=== PATIENT | male | born 1965 | race Caucasian/White ===

== ENCOUNTER → 2018-05-29 13:00 | Outpatient (CLI) | payer OTHER, SELFPAY | PROVIDERS: Family Provider Internal Medicine; PCP Internal Medicine | DX: Z23 Encounter for immunization (principal) | CPT/HCPCS: 90471; 90686 ==

== ENCOUNTER → 2018-09-24 12:59 | Outpatient (CLI) | payer OTHER, SELFPAY ==
[2018-09-24 13:35] LABS: Add Manual Diff / Slide Review NO; Basophils Percent Auto 0.6 % (0-2); Eosinophils Percent Auto 0.4 % (2-4); Hematocrit 40.7 % (41-53); Hemoglobin 13.6 g/dL (13.5-17.5); Lymphocytes Percent Auto 23.9 % (25-40); Mean Corpuscular HGB Conc 33.4 % (30-36); Mean Corpuscular Hemoglobin 32.2 PG (26-34); Mean Corpuscular Volume 96.5 fL (80-100); Monocytes Percent Auto 8.3 % (3-14); Neutrophils Absolute Auto 5800 /uL (1500-7000); Neutrophils Percent Auto 66.8 % (50-75); Platelet Count 454 X10^3/uL (150-400); Red Blood Cell Count 4.22 X10^6/uL (4.5-5.9); Red Cell Distribution Width 13.3 % (11.6-14.8); White Blood Cell Count 8.7 X10^3/uL (4.5-11.0)
== END ==
PROVIDERS: Family Provider Internal Medicine; PCP Internal Medicine; Visit Provider Student in an Organized Health Care Education/Training Program
DX: D64.9 Anemia, unspecified (principal)
CPT/HCPCS: 36415; 85025

== ENCOUNTER → 2019-03-28 16:11 | Outpatient (CLI) | payer OTHER, SELFPAY ==
--- NOTE | 2019-03-28 | DI.MRI.S_ITS ---
PROCEDURE: MR FEMUR RT WO CON INDICATIONS: RIGHT HAMSTRING INJURY TECHNIQUE: Noncontrast coronal and sagittal T1 spin echo and STIR; axial T1 spin echo and T2 fast spin echo with fat saturation through the right thigh. COMPARISON: None. FINDINGS: Image quality: Excellent. Bones: The visualized bone marrow demonstrates normal signal on all sequences. The overlying cortex appears intact. No fractures lines or intra-osseous lesions. Soft tissues: There is a full-thickness avulsion involving the conjoined tendon of semitendinosus and biceps femoris as well as origin of the semimembranosus at their insertion on ischial tuberosity with approximately 3-4 cm of distal retraction of torn tendon fibers to the respective musculotendinous junctions. Edema within upper to mid hamstring muscles are seen suggestive of muscle strain/partial thickness tear. No other muscle or tendon signal abnormality is seen. No muscle atrophy. Moderate amount of fluid is seen surrounding proximal hamstring tendons and muscles. IMPRESSION: 1. Full thickness rupture of proximal hamstring tendon origins at ischial tuberosity with 3-4 cm distal retraction of torn tendon fibers to the level of musculotendinous junction. There is associated strain/intrasubstance partial-thickness tear involving upper to midportion of the hamstring muscles. 2. No marrow edema. No fracture or dislocation. No other muscle or tendon signal abnormality. Dictated by: Bhaskar Damon M.D. on 03/29/2019 at 14:07 Approved by: Bhaskar Damon M.D. on 03/29/2019 at 14:17
== END ==
PROVIDERS: Family Provider Internal Medicine; PCP Internal Medicine; Referring Provider Orthopaedic Surgery; Visit Provider Orthopaedic Surgery
DX: S76.311A Strain of muscle, fascia and tendon of the posterior muscle group at thigh level, right thigh, initial encounter (principal); X58.XXXA Exposure to other specified factors, initial encounter
CPT/HCPCS: 73718

== ENCOUNTER → 2019-10-24 14:24 | Outpatient (CLI) | payer OTHER, SELFPAY ==
--- NOTE | 2019-10-24 | DI.MRI.S_ITS ---
PROCEDURE: MR FEMUR RT WO CON INDICATIONS: RIGHT HAMSTRING TEAR TECHNIQUE: Noncontrast coronal and sagittal T1 spin echo and STIR; axial T1 spin echo and T2 fast spin echo with fat saturation through the right femur were. COMPARISON: [facility], MR, MR FEMUR RT WO CON, 05/02/2019, 12:28. FINDINGS: Image quality: Excellent. Bones: The visualized bone marrow demonstrates normal signal on all sequences. The overlying cortex appears intact. No fractures lines or intra-osseous lesions. Soft tissues: There is thickening of the right hamstring origin, in keeping with postsurgical changes and prior tear. Overall, this demonstrates less T2 hyperintensity/edema since 05/02/19, with mild persistent intrasubstance signal change, which could be combination of postsurgical appearance, chronic tendinosis and/or low-grade sprain. Incidentally noted small lipoma within the right semi-tendinosis muscle measuring approximately 2 cm on image 14/4. There is mild geographic diffuse muscle T2 hyperintensity involving the long head of the right biceps femoris raising the possibility of low-grade strain however quite subtle MR appearance therefore please correlate clinically. IMPRESSION: Postsurgical changes of the right hamstring origin. Overall, the amount of inflammation and edema is improved since 05/02/19. Mild intrasubstance signal change could reflect low-grade recurrent strain or chronic tendinosis. Minimal geographic T2 hyperintensity which appears to involve the long head of the right biceps femoris raising the possibility of low-grade strain, versus minimal/early denervation however MR appearance is quite subtle, and could reflect heterogeneous magnetic field artifact. No evidence of fatty infiltration or atrophy. Dictated by: Blaine Hancock M.D. on 10/24/2019 at 15:39 Approved by: Blaine Hancock M.D. on 10/24/2019 at 16:54
== END ==
PROVIDERS: Family Provider Internal Medicine; PCP Internal Medicine; Referring Provider Orthopaedic Surgery; Visit Provider Orthopaedic Surgery
DX: S76.319A Strain of muscle, fascia and tendon of the posterior muscle group at thigh level, unspecified thigh, initial encounter (principal); D17.9 Benign lipomatous neoplasm, unspecified; X58.XXXA Exposure to other specified factors, initial encounter
CPT/HCPCS: 73718

== ENCOUNTER → 2020-09-24 07:53 | Outpatient (CLI) | payer OTHER, SELFPAY ==
[2020-09-24] MEDS: COVID-19 VACC(MODERNA-1)/PF 100 MCG/0.5 ML VIAL IM (07:58)
== END ==
PROVIDERS: Family Provider Internal Medicine; PCP Internal Medicine; Visit Provider Internal Medicine
DX: Z23 Encounter for immunization (principal)
CPT/HCPCS: 0011A; 91301

== ENCOUNTER → 2020-10-21 07:45 | Outpatient (CLI) | payer OTHER, SELFPAY ==
[2020-10-21] MEDS: COVID-19 VACC #2, MRNA(MOD) 100 MCG/0.5 ML VIAL IM (07:54)
== END ==
PROVIDERS: PCP Internal Medicine; Visit Provider Internal Medicine
DX: Z23 Encounter for immunization (principal)
CPT/HCPCS: 0012A; 91301

== ENCOUNTER → 2020-11-26 12:12 | Outpatient (CLI) | payer OTHER, SELFPAY ==
[2020-11-26 12:38] LABS: Add Manual Diff / Slide Review NO; Basophils Absolute Auto 100 /uL (0-100); Basophils Percent Auto 0.8 % (0-2); Eosinophils Absolute Auto 100 /uL (0-450); Eosinophils Percent Auto 0.6 % (2-4); Hematocrit 38.4 % (41-53); Hemoglobin 13.1 g/dL (13.5-17.5); Lymphocytes Absolute Auto 2600 /uL (1100-4500); Lymphocytes Percent Auto 32.6 % (25-40); Mean Corpuscular Hemoglobin 32.3 PG (26-34); Mean Corpuscular Volume 94.9 fL (80-100); Monocytes Absolute Auto 700 /uL (0-900); Monocytes Percent Auto 9.3 % (3-14); Neutrophils Absolute Auto 4500 /uL (1500-7000); Neutrophils Percent Auto 56.7 % (50-75); Platelet Count 505 X10^3/uL (150-400); Red Blood Cell Count 4.04 X10^6/uL (4.5-5.9); Red Cell Distribution Width 12.6 % (11.6-14.8); White Blood Cell Count 7.9 X10^3/uL (4.5-11.0)
[2020-11-26 13:16] LABS: Blood Urea Nitrogen 18 mg/dL (9-20); Calcium 9.9 mg/dL (8.4-10.2); Carbon Dioxide 30 mmol/L (22-32); Chloride 103 mmol/L (98-107); Cholesterol 182 mg/dL (140-199); Estimated Glomerular Filt Rate > 60.0 mL/min (>60); Glucose 105 mg/dL (70-100); HDL Cholesterol 39 mg/dL (40-60); HEMOLYSIS < 15 (0-50); LDL Cholesterol Calculated 135 mg/dL (<100); Potassium 4.6 mmol/L (3.4-5.1); Sodium 137 mmol/L (137-145); Triglycerides 38 mg/dL (35-150)
[2020-11-26 13:40] LABS: Testosterone 912 ng/dL (71.8-623)
== END ==
PROVIDERS: PCP Internal Medicine; Referring Provider Internal Medicine; Visit Provider Internal Medicine
DX: R53.83 Other fatigue (principal); E78.2 Mixed hyperlipidemia; E29.1 Testicular hypofunction
CPT/HCPCS: 36415; 80048; 80061; 84153; 84403; 85025

== ENCOUNTER → 2021-05-27 07:47 | Outpatient (CLI) | payer OTHER, SELFPAY ==
--- NOTE | 2021-05-27 | DI.NM.S_ITS ---
PROCEDURE: NM BONE SCAN WHOLE BODY RADIOPHARMACEUTICAL: 20.8 mCi Tc-99m MDP IV. INDICATIONS: BONE LESION OF RIGHT SHOULDER TECHNIQUE: Delayed whole-body scintigrams were obtained approximately 3-4 hours after intravenous injection of radiotracer. Anterior and posterior views were acquired from vertex to feet. COMPARISON: [facility] [place], MR, MR CERVICAL SPINE WITHOUT CONTRAST, 11/24/2017, 16:14. [facility], [facility], MR LUMBAR SPINE WO CON, 04/26/2016, 18:53. [facility], MR, MR SHOULDER RT WO CON, 05/18/2021, 17:36. [facility], RG, XR SHOULDER 3V LEFT, 05/06/2021, 7:50. FINDINGS: There is mildly increased uptake in the right humeral head, correlating with findings of erosive changes on radiograph, on MRI and CT. No lesions are identified in skull, sternum, clavicles, scapulae, ribs, bony pelvis, and visualized shafts of the long bones. There is foci of low level increased uptake in cervical, thoracic and lower lumbar spine, most likely degenerative in nature . There are foci of mildly increased periarticular activity involving shoulders, hips and knees, compatible with degenerative/arthritic changes. IMPRESSION: 1. Mildly increased uptake in the right humeral head, correlating with erosive changes seen on comparison radiograph, MRI and CT. Given relatively low level increased uptake, the finding suggests benign etiology. 2. Degenerative/arthritic changes elsewhere as described. Dictated by: Jani Link M.D. on 05/27/2021 at 17:24 Approved by: Jani Link M.D. on 05/28/2021 at 18:18
== END ==
PROVIDERS: PCP Internal Medicine; Referring Provider Student in an Organized Health Care Education/Training Program; Visit Provider Student in an Organized Health Care Education/Training Program
DX: M89.9 Disorder of bone, unspecified (principal)
CPT/HCPCS: 78306; A9503

== ENCOUNTER → 2021-06-24 14:53 | Outpatient (CLI) | payer OTHER, SELFPAY | PROVIDERS: PCP Internal Medicine; Referring Provider Internal Medicine; Visit Provider Internal Medicine | DX: Z23 Encounter for immunization (principal) | CPT/HCPCS: 90471; 90686 ==

== ENCOUNTER → 2021-07-23 09:06 | Outpatient (CLI) | payer OTHER, SELFPAY ==
[2021-07-23] MEDS: COVID-19 VACC #3, MRNA(MOD) 50 MCG/0.25 ML VIAL IM (09:15)
== END ==
PROVIDERS: PCP Internal Medicine; Visit Provider Internal Medicine
DX: Z23 Encounter for immunization (principal)
CPT/HCPCS: 0013A; 91301

== ENCOUNTER → 2021-08-04 09:36 | Outpatient (CLI) | payer OTHER, SELFPAY ==
[2021-08-04 16:42] LABS: COVID19 -Nasal RAPID Negative (Negative)
== END ==
PROVIDERS: PCP Internal Medicine; Referring Provider Physical Medicine & Rehabilitation; Visit Provider Physical Medicine & Rehabilitation
DX: Z20.822 Contact with and (suspected) exposure to COVID-19 (principal)
CPT/HCPCS: 87635; C9803

== ENCOUNTER → 2021-09-02 13:16 | Outpatient (CLI) | payer OTHER, SELFPAY ==
[2021-09-02 13:43] LABS: COVID19 -Nasal RAPID Negative (Negative)
== END ==
PROVIDERS: PCP Internal Medicine; Visit Provider Physical Medicine & Rehabilitation
DX: Z20.822 Contact with and (suspected) exposure to COVID-19 (principal)
CPT/HCPCS: 87635; C9803

== ENCOUNTER → 2022-04-07 09:30 | Outpatient (CLI) | payer OTHER, SELFPAY ==
[2022-04-07 10:31] LABS: COVID19 -Nasal RAPID Negative (Negative)
== END ==
PROVIDERS: PCP Internal Medicine; Visit Provider Physical Medicine & Rehabilitation
DX: Z20.822 Contact with and (suspected) exposure to COVID-19 (principal)
CPT/HCPCS: 87635

== ENCOUNTER → 2022-06-21 15:00 | Outpatient (CLI) | payer OTHER, SELFPAY | PROVIDERS: PCP Internal Medicine; Referring Provider Internal Medicine; Visit Provider Internal Medicine | DX: Z23 Encounter for immunization (principal) | CPT/HCPCS: 90471; 90686 ==

== ENCOUNTER → 2022-07-27 12:27 | Outpatient (CLI) | payer OTHER, SELFPAY ==
[2022-07-27 13:56] LABS: Add Manual Diff / Slide Review NO; Basophils Absolute Auto 0 /uL (0-100); Basophils Percent Auto 0.5 % (0-2); Eosinophils Absolute Auto 100 /uL (0-450); Hematocrit 34.9 % (41-53); Hemoglobin 12.1 g/dL (13.5-17.5); Lymphocytes Absolute Auto 3100 /uL (1100-4500); Lymphocytes Percent Auto 36.2 % (25-40); Mean Corpuscular HGB Conc 34.6 % (30-36); Mean Corpuscular Hemoglobin 31.9 PG (26-34); Mean Corpuscular Volume 92.3 fL (80-100); Monocytes Absolute Auto 800 /uL (0-900); Monocytes Percent Auto 9.2 % (3-14); Neutrophils Absolute Auto 4500 /uL (1500-7000); Neutrophils Percent Auto 53.1 % (50-75); Platelet Count 534 X10^3/uL (150-400); Red Blood Cell Count 3.78 X10^6/uL (4.5-5.9); Red Cell Distribution Width 13.9 % (11.6-14.8); White Blood Cell Count 8.5 X10^3/uL (4.5-11.0)
[2022-07-27 14:33] LABS: Erythrocyte Sedimentation Rate 97 MM/HR (0-15)
[2022-07-27 14:35] LABS: Alanine Aminotransferase 26 IU/L (<50); Albumin 4.5 g/dL (3.5-5.0); Alkaline Phosphatase 78 U/L (38-126); Aspartate Aminotransferase 35 IU/L (17-59); BUN Creatinine Ratio 15.4 (6-22); Bilirubin Total 0.5 mg/dL (0.2-1.3); Blood Urea Nitrogen 16 mg/dL (9-20); C-Reactive Protein Quant 1.6 mg/dL (<1.0); Calcium 10.1 mg/dL (8.4-10.2); Carbon Dioxide 28 mmol/L (22-32); Chloride 100 mmol/L (98-107); Estimated Glomerular Filt Rate > 60 mL/min (>60); Globulin 4.3 g/dL (1.7-4.1); Glucose 94 mg/dL (70-100); HEMOLYSIS 19 (0-50); Potassium 4.7 mmol/L (3.4-5.1); Sodium 137 mmol/L (137-145); Total Protein 8.8 g/dL (6.3-8.2)
[2022-07-27 14:37] LABS: HEMOLYSIS 21 (0-50); Iron 74 ug/dL (49-181)
[2022-07-27 14:41] LABS: Rheumatoid Factor < 8.6 IU/mL (<12.0)
[2022-07-27 14:48] LABS: Percent Iron Saturation 28 % (20-50); Total Iron Binding Capacity 264 ug/dL (261-462); Transferrin 214 mg/dL (206-381)
[2022-07-27 15:07] LABS: Ferritin 32 ng/mL (18-464)
[2022-08-01 21:23] LABS: CCP Antibodies IgG/IgA 8 units (0-19)
[2022-08-02 18:16] LABS: ANA Screen, IFA Negative (.)
== END ==
PROVIDERS: PCP Internal Medicine; Referring Provider Internal Medicine; Visit Provider Internal Medicine
DX: D64.9 Anemia, unspecified (principal); M25.50 Pain in unspecified joint; R73.01 Impaired fasting glucose
CPT/HCPCS: 36415; 80053; 82728; 83036; 83540; 83550; 85025; 85651; 86038; 86140; 86200; 86430

== ENCOUNTER → 2022-07-29 08:31 | Outpatient (CLI) | payer OTHER, SELFPAY ==
--- NOTE | 2022-07-29 | DI.RAD.S_ITS ---
PROCEDURE: FL SHOULDER INJECTION MR/CT RT INDICATIONS: impingement syndrome of right shoulder, rule out new tear COMPARISON: None. TECHNIQUE: The indications, alternatives, benefits, risks, and complications of the procedure were explained to the patient. Written informed consent was obtained and placed in the chart. The shoulder was examined fluoroscopically and a site for needle placement chosen for entry into the glenohumeral joint from an anterior approach. The skin was prepped and draped in a sterile fashion, and 1% lidocaine infiltrated from skin down to joint capsule. A spinal needle was inserted into the glenohumeral joint, and a small amount of iodinated contrast media injected to confirm intra-articular placement of the needle tip. This was followed by approximately 12 mL dilute solution of a gadolinium containing MR contrast agent. The needle was removed and a dressing was applied. The patient was given postprocedural instructions and sent to the MR suite for MR imaging. FINDINGS: A single fluoroscopic spot image demonstrates intra-articular location of injected iodinated contrast. IMPRESSION: Successful fluoroscopically guided administration of dilute Gadolinium solution into the shoulder joint for MR arthrogram. Dictated by: Bhaskar Damon M.D. on 07/29/2022 at 9:54 Approved by: Bhaskar Damon M.D. on 07/29/2022 at 9:55
--- NOTE | 2022-07-29 08:33 | DI.MRI.S_ITS ---
PROCEDURE: MR SHOULDER RT W CON INDICATIONS: IMPINGEMENT SYNDROME RIGHT SHOULDER TECHNIQUE: After the administration of 12 mL of dilute intra-articular Gadolinium contrast, oblique coronal T1 and T2 spin echo with fat saturation, oblique sagittal T1 spin echo with and without fat saturation, oblique sagittal T2 fast spin echo with fat saturation, axial T1 spin echo with fat saturation through the shoulder. COMPARISON: None. FINDINGS: Image quality: Excellent. Rotator cuff: There is a focal dissecting type tear involving the supraspinatus tendon with contrast extending into the subacromial subdeltoid bursa. No significant tendon retraction is identified. Remaining rotator cuff tendons are intact.. Bones and bursae: No bone marrow contusions or fractures. There is moderate AC and moderate glenohumeral joint degenerative change. Capsule and soft tissues: There is a tear involving the posterior glenoid labrum. The tear also extends into the superior glenoid labrum. The long head of the biceps tendon demonstrates normal location and morphology. The rotator interval appears normal, without fibrosis. The coracohumeral ligament is of normal thickness. No intra-articular bodies. IMPRESSION: 1. Tear involving the posterior glenoid labrum extending into the superior glenoid labrum. 2. Focal dissecting type tear involving the supraspinatus tendon with contrast extending into the subacromial subdeltoid bursa. 3. Moderate AC joint degenerative change. 4. Moderate glenohumeral joint degenerative change. 5. Prior postsurgical changes of rotator cuff repair. Dictated by: Darien Parham M.D. on 07/29/2022 at 10:39 Approved by: Darien Parham M.D. on 07/29/2022 at 10:44
== END ==
PROVIDERS: PCP Internal Medicine; Referring Provider Orthopaedic Surgery; Visit Provider Orthopaedic Surgery
DX: M75.41 Impingement syndrome of right shoulder (principal); M75.111 Incomplete rotator cuff tear or rupture of right shoulder, not specified as traumatic; S43.431A Superior glenoid labrum lesion of right shoulder, initial encounter
CPT/HCPCS: 23350; 73222; 77002

== ENCOUNTER → 2022-08-02 14:13 | Outpatient (CLI) | payer OTHER, SELFPAY ==
[2022-08-02 14:30] LABS: Add Manual Diff / Slide Review NO; Basophils Absolute Auto 100 /uL (0-100); Basophils Percent Auto 0.8 % (0-2); Eosinophils Absolute Auto 0 /uL (0-450); Eosinophils Percent Auto 0.6 % (2-4); Hematocrit 35.7 % (41-53); Hemoglobin 12.1 g/dL (13.5-17.5); Lymphocytes Absolute Auto 2200 /uL (1100-4500); Mean Corpuscular HGB Conc 33.9 % (30-36); Mean Corpuscular Hemoglobin 31.3 PG (26-34); Mean Corpuscular Volume 92.5 fL (80-100); Monocytes Absolute Auto 500 /uL (0-900); Monocytes Percent Auto 7.3 % (3-14); Neutrophils Absolute Auto 4200 /uL (1500-7000); Neutrophils Percent Auto 60.3 % (50-75); Platelet Count 550 X10^3/uL (150-400); Red Blood Cell Count 3.85 X10^6/uL (4.5-5.9); Red Cell Distribution Width 13.8 % (11.6-14.8)
[2022-08-02 14:36] LABS: Reticulocyte Count, Percent 1.1 % (0.9-2.6)
[2022-08-02 14:46] LABS: C-Reactive Protein Quant 0.9 mg/dL (<1.0)
[2022-08-02 14:50] LABS: Erythrocyte Sedimentation Rate 83 MM/HR (0-15)
[2022-08-02 15:32] LABS: Vitamin B12 874 pg/mL (239-931)
[2022-08-02 15:41] LABS: Protein (Total) Urine Random 12 mg/dL (0-12)
[2022-08-04 17:52] LABS: Albumin 3.6 g/dL (2.9-4.4); Alpha-1-Globulin 0.3 g/dL (0.0-0.4); Alpha-2-Globulin 0.6 g/dL (0.4-1.0); Gamma Globulin 2.2 g/dL (0.4-1.8); Globulin Total 4.2 g/dL (2.2-3.9); Protein, Total 7.8 g/dL (6.0-8.5)
[2022-08-05 09:50] LABS: Methylmalonic Acid,Serum 85 nmol/L (0-378)
== END ==
PROVIDERS: PCP Internal Medicine; Referring Provider Internal Medicine; Visit Provider Internal Medicine
DX: D64.9 Anemia, unspecified (principal); E53.8 Deficiency of other specified B group vitamins; R77.9 Abnormality of plasma protein, unspecified
CPT/HCPCS: 36415; 82607; 83921; 84155; 84156; 84165; 85025; 85045; 85651; 86140

== ENCOUNTER → 2023-01-31 12:18 | Outpatient (CLI) | payer OTHER, SELFPAY ==
--- NOTE | 2023-01-31 12:18 | DI.RAD.S_ITS ---
PROCEDURE: XR CHEST 2V INDICATIONS: cough, sweats, hx pulmonary nodules TECHNIQUE: 2 views of the chest were acquired. COMPARISON: Outside Facility, RG, CT THORAX/ ABD/ PELVIS WITH CONTRAST, 11/18/2022, 12:10. FINDINGS: Surgical changes and devices: None. Lungs and pleura: Lungs are clear. No pleural effusions or pneumothorax. Mediastinum: Mediastinal contours are normal. Heart size is normal. Bones and chest wall: No suspicious bony abnormalities. Soft tissues appear unremarkable. Thoracic spine degenerative disc changes. Bilateral glenohumeral joint osteoarthritis, right greater than left. Widening of the bilateral acromioclavicular joints possibly postsurgical. IMPRESSION: No acute cardiopulmonary disease process. Dictated by: Hyacinth Ly MD, PhD on 01/31/2023 at 15:21 Approved by: Hyacinth Ly MD, PhD on 01/31/2023 at 15:26
== END ==
PROVIDERS: PCP Internal Medicine; Referring Provider Internal Medicine; Visit Provider Internal Medicine
DX: R05.9 Cough, unspecified (principal); R91.8 Other nonspecific abnormal finding of lung field
CPT/HCPCS: 71046

== ENCOUNTER → 2023-03-06 17:02 | Outpatient (CLI) | payer OTHER, SELFPAY ==
[2023-03-06 17:38] LABS: Add Manual Diff / Slide Review NO; Basophils Absolute Auto 0 /uL (0-100); Basophils Percent Auto 0.6 % (0-2); Eosinophils Absolute Auto 0 /uL (0-450); Eosinophils Percent Auto 0.4 % (2-4); Hemoglobin 11.8 g/dL (13.5-17.5); Lymphocytes Absolute Auto 2000 /uL (1100-4500); Lymphocytes Percent Auto 25.4 % (25-40); Mean Corpuscular HGB Conc 34.6 % (30-36); Mean Corpuscular Hemoglobin 31.6 PG (26-34); Mean Corpuscular Volume 91.3 fL (80-100); Monocytes Absolute Auto 1000 /uL (0-900); Monocytes Percent Auto 12.8 % (3-14); Neutrophils Absolute Auto 4700 /uL (1500-7000); Neutrophils Percent Auto 60.8 % (50-75); Platelet Count 590 X10^3/uL (150-400); Red Blood Cell Count 3.73 X10^6/uL (4.5-5.9); White Blood Cell Count 7.7 X10^3/uL (4.5-11.0)
[2023-03-06 18:03] LABS: HEMOLYSIS < 15 (0-50); Iron 57 ug/dL (49-181)
[2023-03-06 18:12] LABS: Alanine Aminotransferase 25 IU/L (<50); Albumin 4.4 g/dL (3.5-5.0); Albumin Globulin Ratio 0.9 (1.0-2.8); Alkaline Phosphatase 81 U/L (38-126); Aspartate Aminotransferase 31 IU/L (17-59); Bilirubin Total 0.5 mg/dL (0.2-1.3); Blood Urea Nitrogen 11 mg/dL (9-20); Carbon Dioxide 32 mmol/L (22-32); Chloride 98 mmol/L (98-107); Estimated Glomerular Filt Rate > 60 mL/min (>60); Globulin 4.9 g/dL (1.7-4.1); Glucose 94 mg/dL (70-100); HEMOLYSIS < 15 (0-50); Sodium 137 mmol/L (137-145); Total Protein 9.3 g/dL (6.3-8.2)
[2023-03-06 18:15] LABS: Percent Iron Saturation 21 % (20-50); Total Iron Binding Capacity 272 ug/dL (261-462); Transferrin 190 mg/dL (206-381)
[2023-03-06 18:43] LABS: Ferritin 42 ng/mL (18-464)
[2023-03-07 04:46] LABS: IGA 55 mg/dL (90-386); IGG 1007 mg/dL (603-1613); IGM 2445 mg/dL (20-172)
[2023-03-07 20:36] LABS: Free Kappa Lt Chains, Serum 10.1 mg/L (3.3-19.4); Free Lambda Lt Chains,Serum 92.3 mg/L (5.7-26.3)
[2023-03-08 15:16] LABS: Albumin 3.7 g/dL (2.9-4.4); Alpha-1-Globulin 0.2 g/dL (0.0-0.4); Alpha-2-Globulin 0.7 g/dL (0.4-1.0); Gamma Globulin 2.6 g/dL (0.4-1.8); Globulin Total 4.5 g/dL (2.2-3.9); Protein, Total 8.2 g/dL (6.0-8.5)
== END ==
PROVIDERS: PCP Internal Medicine; Referring Provider Physician Assistant; Visit Provider Physician Assistant
DX: D64.9 Anemia, unspecified (principal)
CPT/HCPCS: 36415; 80053; 82728; 82784; 83540; 83550; 83883; 84155; 84165; 85025

== ENCOUNTER → 2023-04-20 17:11 | Outpatient (CLI) | payer OTHER, SELFPAY ==
[2023-04-20 17:41] LABS: Add Manual Diff / Slide Review NO; Basophils Absolute Auto 0 /uL (0-100); Basophils Percent Auto 0.4 % (0-2); Eosinophils Absolute Auto 0 /uL (0-450); Eosinophils Percent Auto 0.3 % (2-4); Hematocrit 34.2 % (41-53); Hemoglobin 11.8 g/dL (13.5-17.5); Lymphocytes Absolute Auto 1900 /uL (1100-4500); Mean Corpuscular HGB Conc 34.4 % (30-36); Mean Corpuscular Hemoglobin 32.6 PG (26-34); Mean Corpuscular Volume 94.5 fL (80-100); Monocytes Absolute Auto 900 /uL (0-900); Neutrophils Absolute Auto 6600 /uL (1500-7000); Neutrophils Percent Auto 70.3 % (50-75); Platelet Count 565 X10^3/uL (150-400); Red Blood Cell Count 3.62 X10^6/uL (4.5-5.9); White Blood Cell Count 9.4 X10^3/uL (4.5-11.0)
[2023-04-20 18:05] LABS: HEMOLYSIS < 15 (0-50); Total Iron Binding Capacity 259 ug/dL (261-462); Transferrin 179 mg/dL (206-381)
[2023-04-20 18:29] LABS: Iron 41 ug/dL (49-181); Percent Iron Saturation 16 % (20-50)
[2023-04-20 18:30] LABS: Ferritin 104 ng/mL (18-464)
== END ==
PROVIDERS: PCP Internal Medicine; Referring Provider Internal Medicine; Visit Provider Internal Medicine
DX: D64.9 Anemia, unspecified (principal)
CPT/HCPCS: 36415; 82728; 83540; 83550; 85025

== ENCOUNTER → 2023-06-06 12:37 | Outpatient (CLI) | payer OTHER, SELFPAY ==
[2023-06-06 13:29] LABS: Add Manual Diff / Slide Review NO; Basophils Absolute Auto 100 /uL (0-100); Basophils Percent Auto 0.6 % (0-2); Eosinophils Absolute Auto 100 /uL (0-450); Eosinophils Percent Auto 0.6 % (2-4); Hemoglobin 13.2 g/dL (13.5-17.5); Lymphocytes Absolute Auto 1800 /uL (1100-4500); Lymphocytes Percent Auto 18.8 % (25-40); Mean Corpuscular HGB Conc 34.6 % (30-36); Mean Corpuscular Hemoglobin 33.7 PG (26-34); Mean Corpuscular Volume 97.5 fL (80-100); Monocytes Absolute Auto 1100 /uL (0-900); Monocytes Percent Auto 11.4 % (3-14); Neutrophils Absolute Auto 6800 /uL (1500-7000); Neutrophils Percent Auto 68.6 % (50-75); Platelet Count 538 X10^3/uL (150-400); Red Cell Distribution Width 14.6 % (11.6-14.8); White Blood Cell Count 9.8 X10^3/uL (4.5-11.0)
[2023-06-06 13:46] LABS: HEMOLYSIS < 15 (0-50); Iron 90 ug/dL (49-181)
[2023-06-06 13:57] LABS: Percent Iron Saturation 36 % (20-50); Total Iron Binding Capacity 253 ug/dL (261-462); Transferrin 173 mg/dL (206-381)
[2023-06-06 14:24] LABS: Ferritin 228 ng/mL (18-464)
[2023-06-06 16:26] LABS: Reticulocyte Count, Percent 0.7 % (0.9-2.6)
[2023-06-07 20:00] LABS: IgA 53 mg/dL (90-386); t-Transglutaminase IgA <2 U/mL (0-3)
== END ==
PROVIDERS: PCP Internal Medicine; Referring Provider Internal Medicine; Visit Provider Internal Medicine
DX: D59.0 Drug-induced autoimmune hemolytic anemia (principal); K90.0 Celiac disease
CPT/HCPCS: 36415; 82728; 82784; 83516; 83540; 83550; 85025; 85045

== ENCOUNTER → 2023-08-31 12:50 | Outpatient (CLI) | payer OTHER, SELFPAY ==
[2023-08-31 13:04] LABS: Hematocrit 35.6 % (41-53); Hemoglobin 12.6 g/dL (13.5-17.5); Mean Corpuscular HGB Conc 35.3 % (30-36); Mean Corpuscular Hemoglobin 34.8 PG (26-34); Mean Corpuscular Volume 98.5 fL (80-100); Platelet Count 577 X10^3/uL (150-400); Red Blood Cell Count 3.61 X10^6/uL (4.5-5.9); Red Cell Distribution Width 12.6 % (11.6-14.8); White Blood Cell Count 9.4 X10^3/uL (4.5-11.0)
[2023-08-31 14:11] LABS: Ferritin 182 ng/mL (18-464)
[2023-08-31 15:36] LABS: HEMOLYSIS < 15 (0-50); Iron 67 ug/dL (49-181)
[2023-08-31 15:49] LABS: Percent Iron Saturation 31 % (20-50); Total Iron Binding Capacity 219 ug/dL (261-462); Transferrin 184 mg/dL (206-381)
== END ==
PROVIDERS: PCP Internal Medicine; Referring Provider Internal Medicine; Visit Provider Internal Medicine
DX: D50.9 Iron deficiency anemia, unspecified (principal)
CPT/HCPCS: 36415; 82728; 83540; 83550; 85027

== ENCOUNTER → 2024-03-19 12:44 | Outpatient (CLI) | payer OTHER, SELFPAY ==
[2024-03-19 13:54] LABS: Add Manual Diff / Slide Review NO; Basophils Absolute Auto 0 /uL (0-100); Basophils Percent Auto 0.6 % (0-2); Eosinophils Absolute Auto 0 /uL (0-450); Eosinophils Percent Auto 0.4 % (2-4); Hematocrit 33.9 % (41-53); Lymphocytes Absolute Auto 1900 /uL (1100-4500); Lymphocytes Percent Auto 25.2 % (25-40); Mean Corpuscular HGB Conc 35.5 % (30-36); Mean Corpuscular Hemoglobin 34.9 PG (26-34); Mean Corpuscular Volume 98.5 fL (80-100); Monocytes Absolute Auto 800 /uL (0-900); Monocytes Percent Auto 10.5 % (3-14); Neutrophils Absolute Auto 4700 /uL (1500-7000); Neutrophils Percent Auto 63.3 % (50-75); Platelet Count 545 X10^3/uL (150-400); Red Blood Cell Count 3.44 X10^6/uL (4.5-5.9); Red Cell Distribution Width 12.3 % (11.6-14.8); White Blood Cell Count 7.4 X10^3/uL (4.5-11.0)
[2024-03-19 14:08] LABS: HEMOLYSIS < 15 (0-50); Iron 68 ug/dL (49-181)
[2024-03-19 14:14] LABS: Reticulocyte Count, Percent 0.5 % (0.9-2.6)
[2024-03-19 14:19] LABS: Percent Iron Saturation 33 % (20-50); Total Iron Binding Capacity 206 ug/dL (261-462); Transferrin 158 mg/dL (206-381)
[2024-03-19 14:42] LABS: Ferritin 285 ng/mL (18-464)
[2024-03-21 07:11] LABS: Immunoglobulin M, Quantitative 2277 mg/dL (20-172)
== END ==
PROVIDERS: PCP Internal Medicine; Referring Provider Internal Medicine; Visit Provider Internal Medicine
DX: C88.0 Waldenstrom macroglobulinemia (principal); D50.9 Iron deficiency anemia, unspecified
CPT/HCPCS: 36415; 82728; 82784; 83540; 83550; 85025; 85045

== ENCOUNTER → 2024-05-02 12:50 | Outpatient (CLI) | payer OTHER, SELFPAY ==
[2024-05-02 13:27] LABS: Reticulocyte Count, Percent 0.6 % (0.9-2.6)
[2024-05-02 13:31] LABS: Hematocrit 36.6 % (41-53); Hemoglobin 12.8 g/dL (13.5-17.5); Mean Corpuscular Hemoglobin 34.3 PG (26-34); Platelet Count 611 X10^3/uL (150-400); Red Blood Cell Count 3.74 X10^6/uL (4.5-5.9); Red Cell Distribution Width 12.3 % (11.6-14.8); White Blood Cell Count 8.5 X10^3/uL (4.5-11.0)
[2024-05-02 13:36] LABS: Neutrophils Absolute Manual 5950 /uL (3000-5900); Total Cells Counted 100
[2024-05-02 13:42] LABS: RBC Morphology Normal Morphology
[2024-05-02 13:59] LABS: Lactate Dehydrogenase 161 U/L (120-246)
[2024-05-04 03:37] LABS: Haptoglobin 130 mg/dL (29-370)
== END ==
LOC: LAB 12:51
PROVIDERS: PCP Internal Medicine; Referring Provider Internal Medicine; Visit Provider Internal Medicine
DX: D58.9 Hereditary hemolytic anemia, unspecified (principal); C88.0 Waldenstrom macroglobulinemia
CPT/HCPCS: 36415; 83010; 83615; 85025; 85045; 86880

== ENCOUNTER → 2024-05-30 14:53 | Outpatient (CLI) | payer OTHER, SELFPAY | LOC: LAB 14:53 | PROVIDERS: PCP Internal Medicine; Referring Provider Internal Medicine; Visit Provider Internal Medicine | DX: A69.20 Lyme disease, unspecified (principal) | CPT/HCPCS: 36415; 86617 ==

== ENCOUNTER → 2024-07-12 09:35 | Outpatient (CLI) | payer OTHER, SELFPAY ==
--- NOTE | 2024-07-12 09:36 | DI.RAD.S_ITS ---
PROCEDURE: XR HAND LT MIN 3V INDICATIONS: left hand pain, fall TECHNIQUE: 3 views of the hand(s) acquired. COMPARISON: None. FINDINGS: Bones: No fractures or dislocations. Carpal bones are normally aligned. No suspicious bony lesions. Soft tissues: No suspicious soft tissue calcifications. IMPRESSION: No acute bony abnormality. Approved by: Rodrigo De Oliveira M.D. on 07/12/2024 at 12:48
== END ==
PROVIDERS: PCP Internal Medicine; Referring Provider Internal Medicine; Visit Provider Internal Medicine
DX: M79.642 Pain in left hand (principal)
CPT/HCPCS: 73130

== ENCOUNTER → 2024-08-07 16:43 | Outpatient (CLI) | payer OTHER, SELFPAY ==
[2024-08-07 17:36] LABS: Add Manual Diff / Slide Review NO; Basophils Absolute Auto 100 /uL (0-100); Basophils Percent Auto 0.7 % (0-2); Eosinophils Absolute Auto 200 /uL (0-450); Eosinophils Percent Auto 1.7 % (2-4); Hematocrit 35.8 % (41-53); Hemoglobin 12.4 g/dL (13.5-17.5); Lymphocytes Absolute Auto 2200 /uL (1100-4500); Lymphocytes Percent Auto 23.8 % (25-40); Mean Corpuscular HGB Conc 34.6 % (30-36); Mean Corpuscular Hemoglobin 34.2 PG (26-34); Mean Corpuscular Volume 98.9 fL (80-100); Monocytes Absolute Auto 1000 /uL (0-900); Neutrophils Absolute Auto 5700 /uL (1500-7000); Neutrophils Percent Auto 62.8 % (50-75); Platelet Count 603 X10^3/uL (150-400); Red Blood Cell Count 3.62 X10^6/uL (4.5-5.9); White Blood Cell Count 9.1 X10^3/uL (4.5-11.0)
[2024-08-07 18:21] LABS: Reticulocyte Count, Percent 0.7 % (0.9-2.6)
[2024-08-09 04:37] LABS: Immunoglobulin M, Quantitative 2389 mg/dL (20-172)
== END ==
LOC: LAB 16:43
PROVIDERS: PCP Internal Medicine; Referring Provider Physical Medicine & Rehabilitation; Visit Provider Physical Medicine & Rehabilitation
DX: C88.00 Waldenstrom macroglobulinemia not having achieved remission (principal); D64.9 Anemia, unspecified
CPT/HCPCS: 36415; 82784; 85025; 85045

== ENCOUNTER → 2024-09-01 14:57 | Outpatient (CLI) | payer OTHER, SELFPAY ==
--- NOTE | 2024-09-01 14:59 | DI.RAD.S_ITS ---
PROCEDURE: XR HAND LT MIN 3V INDICATIONS: mc fx, prox pip fx 3 and 4th digits TECHNIQUE: 3 views of the hand(s) acquired. COMPARISON: [facility], CR, XR HAND LT MIN 3V, 07/12/2024, 8:45. FINDINGS: Bones: No fractures or dislocations. Carpal bones are normally aligned. No suspicious bony lesions. Soft tissues: No suspicious soft tissue calcifications. IMPRESSION: No acute bony abnormality. Dictated by: Ema Funk M.D. on 09/01/2024 at 14:26 Approved by: Ema Funk M.D. on 09/01/2024 at 14:26
== END ==
PROVIDERS: PCP Internal Medicine; Referring Provider Physical Medicine & Rehabilitation; Visit Provider Physical Medicine & Rehabilitation
DX: M79.642 Pain in left hand (principal)
CPT/HCPCS: 73130

== ENCOUNTER → 2024-10-15 13:05 | Outpatient (CLI) | payer OTHER, SELFPAY ==
--- NOTE | 2024-10-15 13:06 | DI.RAD.S_ITS ---
PROCEDURE: XR CHEST 2V INDICATIONS: cough TECHNIQUE: 2 views of the chest were acquired. COMPARISON: [facility], CR, XR CHEST 2V, 01/31/2023, 12:15. FINDINGS: Surgical changes and devices: None. Lungs and pleura: Lungs are clear. No pleural effusions or pneumothorax. Mediastinum: Mediastinal contours are normal. Heart size is normal. Bones and chest wall: No suspicious bony abnormalities. Soft tissues appear unremarkable. IMPRESSION: No acute cardiopulmonary abnormality is seen. Dictated by: Frankie Burnett M.D. on 10/15/2024 at 17:04 Approved by: Frankie Burnett M.D. on 10/15/2024 at 17:04
== END ==
PROVIDERS: PCP Internal Medicine; Referring Provider Internal Medicine; Visit Provider Internal Medicine
DX: R05.9 Cough, unspecified (principal); C88.00 Waldenstrom macroglobulinemia not having achieved remission
CPT/HCPCS: 71046

== ENCOUNTER → 2024-12-09 13:00 | Outpatient (CLI) | payer OTHER, SELFPAY ==
[2024-12-09 13:28] LABS: Add Manual Diff / Slide Review NO; Basophils Absolute Auto 100 /uL (0-100); Basophils Percent Auto 0.5 % (0-2); Eosinophils Absolute Auto 100 /uL (0-450); Eosinophils Percent Auto 0.5 % (2-4); Hematocrit 35.8 % (41-53); Hemoglobin 12.4 g/dL (13.5-17.5); Lymphocytes Absolute Auto 1700 /uL (1100-4500); Lymphocytes Percent Auto 13.6 % (25-40); Mean Corpuscular HGB Conc 34.5 % (30-36); Mean Corpuscular Volume 98.4 fL (80-100); Monocytes Absolute Auto 1300 /uL (0-900); Monocytes Percent Auto 10.3 % (3-14); Neutrophils Absolute Auto 9300 /uL (1500-7000); Neutrophils Percent Auto 75.1 % (50-75); Platelet Count 634 X10^3/uL (150-400); Red Blood Cell Count 3.64 X10^6/uL (4.5-5.9); White Blood Cell Count 12.4 X10^3/uL (4.5-11.0)
[2024-12-09 13:50] LABS: Cholesterol 203 mg/dL (140-199); Glucose 107 mg/dL (70-100); HDL Cholesterol 38 mg/dL (40-60); LDL Cholesterol Calculated 149 mg/dL (<100); Triglycerides 78 mg/dL (35-150)
[2024-12-09 14:21] LABS: Prostate Specific Antigen Scrn 0.485 ng/mL (0.1-4.0)
[2024-12-10 03:39] LABS: Immunoglobulin M, Quantitative 2566 mg/dL (20-172)
[2024-12-10 09:40] LABS: Varicella IgG Antibody Reactive (Non Reactive)
== END ==
PROVIDERS: PCP Internal Medicine; Referring Provider Internal Medicine; Visit Provider Internal Medicine
DX: Z00.00 Encounter for general adult medical examination without abnormal findings (principal); Z20.9 Contact with and (suspected) exposure to unspecified communicable disease; Z12.5 Encounter for screening for malignant neoplasm of prostate; D50.9 Iron deficiency anemia, unspecified; C88.00 Waldenstrom macroglobulinemia not having achieved remission
CPT/HCPCS: 36415; 80061; 82784; 82947; 85025; 86787; G0103

== ENCOUNTER → 2025-03-11 16:14 | Outpatient (CLI) | payer OTHER, SELFPAY ==
--- NOTE | 2025-03-11 17:26 | RT ---
[id number] - Spoke to Bee Parker RN from Dr. Sewell's Office regarding Physician Order instructions. Considering PFT was ordered and also a pulmonary referral for further eval was discussed per MD order, RT suggested Complete PFT instead of spirometry only. Bee communicated with Dr. Sewell who agreed to have the pt perform a Complete PFT here.
== END ==
LOC: RESP 16:14
PROVIDERS: Family Provider Internal Medicine; PCP Internal Medicine; Referring Provider Internal Medicine Hematology & Oncology; Visit Provider Internal Medicine Hematology & Oncology
DX: R05.2 Subacute cough (principal)
CPT/HCPCS: 94060; 94726; 94729

== ENCOUNTER 2025-06-17 06:51 | Day surgery (SDC) | payer OTHER, SELFPAY ==
[2025-06-11 10:17] VITALS: BMI 26.7
[2025-06-17] VITALS (7 sets, daily range): BP systolic 117–138; BP diastolic 68–82; PULSE 70–96; RESP 16–27; TEMP 36.4–36.8; O2SAT 94–98; BMI 26.7
[2025-06-17] MEDS: LACTATED RINGERS 1,000 ML 42 ML IV (07:19)
--- NOTE | 2025-06-17 07:55 | P.HP_ITS ---
History of Present Illness History of Present Illness Chief complaint: Broncchoscopy Narrative: IDCC: 59 year old man with chronic cough and pulmonary nodules HPI: H/o Waldenstrom's, Chronic cough on and off for one year. CT chest showing pulmonary nodules. 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 Pulmonary nodules Sleep apnea (~2019) Anxiety (~2016) Depression, major, recurrent (~2017) Rotator cuff arthropathy of right shoulder Surgical History H/O vasectomy Anesthesia History of arthroscopy of shoulder (~08/06/21) Ruptured hamstring tendon (~04/15/19) Anal fistula (~12/29/11) Family History Father Prostate cancer History of heart disease Hypertension Mother Hypertension Asthma Grandfather Dementia Grandmother Aneurysm Grandfather CVA (cerebral vascular accident) Renal failure Grandmother Alzheimer's disease Social History household members: spouse Smoking Status: Never smoker alcohol intake: current Meds Home Medications and Allergies Home Medications ?Medication ?Instructions ?Recorded ?Confirmed ?Type alprazolam 0.5 mg tablet (Xanax) 0.5 mg PO BID PRN anx iety #15 tabs 10/19/24 06/17/25 Rx Held on 01/24/25. Instructions: Home Medication placed on hold at Doctor's office albuterol sulfate 90 mcg/actuation 2 puff inhalation Q 6H PRN 01/14/25 06/17/25 Rx aerosol inhaler shortness of breath or wheez ing Held on 02/24/25. #8.5 grams Instructions: Home Medication placed on hold at Doctor's office beclomethasone dipropionate 40 1 inh inhalation BID #1 0.6 grams 01/24/25 06/17/25 Rx mcg/actuation HFA breath activated aerosol (Qvar RediHaler) Held on 06/17/25. Instructions: Change in level of care finasteride 5 mg tablet 5 mg PO DAILY #90 tabs 02/0405/14/25 Rx budesonide-formoterol HFA 80 1 inh inhalation ONCE #10 .2 grams 02/20/25 06/17/25 Rx mcg-4.5 mcg/actuation aerosol inhaler (Symbicort) fluticasone propionate 50 2 spray intranasal DAILY 02/0905/14/25 History mcg/actuation nasal spray,suspension (Flonase Allergy Relief) inhalational spacing device (Martir #1 ea 02/20/25 Rx Aerosol [place] Enhancer spacer) escitalopram oxalate 10 mg tablet 10 mg PO DAILY 05/1405/14/25 History (Lexapro) fluconazole 100 mg tablet 100 mg PO DAILY 21 days #30 tabs 05/28/25 Rx Allergies Allergy/AdvReac Type Severity Reaction Status Date / Time No Known Drug Allergies Allergy Verified 06/17/25 07:06 Exam Vital Signs (past 8 hours): - 06/17/25 07:11 Temperature 98.1 F Pulse Rate 77 Respiratory Rate 16 Blood Pressure 117/68 Pulse Oximetry 98 Oxygen Delivery Method Room Air Oxygen Delivery Method Room Air Narrative Exam Narrative: Well. Breathing comfortably. Assessment & Plan Assessment and plan (1) Chronic cough: Status: Acute Plan: Plan: --Bronchoscopy, lavage for cell count , diff, micro Time-Based Coding :: [TOTAL MINUTES] spent with patient and on the chart (including review of chart, obtaining history, exam, reviewing outside data, placing orders, documenting exam and treatment plan, and counseling patient) on [DATE]. PROFEE Associate Professor Of Biostatistics Document charge(s): No
--- NOTE | 2025-06-17 08:40 | PM.PROC.IH ---
Procedures Date/Time Date of procedure: 06/17/25 Time of procedure: 08:41 General Procedure description: Bronchoscopy with lavage Following a time out for verification and Anesthesia induction, the patient was intubated and ventilated. The flexible bronchoscope was passed through the endotracheal tube. The main drake and bilateral right and left main stems were mildly erythematous but otherwise normal. The inferior segment of the lingula was wedged and lavaged with return of mildly cellular nonpurulent, nonbloody fluid. The right middle lobe was wedged and lavaged with saline and there was return of mildly cellular nonpurulent nonbloody fluid. An inspection of the proximal subsegments bilaterally showed no endobronchial lesion, no area purulence. Procedure terminated at that time. There were no immediate complications. Samples: -to cell count, pathology and micro IH PROFEE Claims Examiner Document charge(s): Yes
--- NOTE | 2025-06-17 09:09 | P.DS_ITS ---
History of Present Illness History of Present Illness Chief complaint: Bronchoscopy Narrative: IDCC: 59 year old man with chronic cough and pulmonary nodules HPI: H/o Waldenstrom's, Chronic cough on and off for one year. CT chest showing pulmonary nodules. Discharge Providers Provider Discharge Date: 06/17/25 Primary care physician: Kingston Sandoval MD Discharge provider: Ken Allen MD Summary Hospital Course Discharge Diagnosis: Chronic cough Pulmonary nodules Hospital Course: Bronchoscopy procedure. Time Spent with Patient Time spent: Less than 30 minutes Exam Vital Signs (past 8 hours): - 06/17/25 07:11 06/17/25 08:51 06/17/25 08:56 Temperature 98.1 F 97.5 F L Pulse Rate 77 96 H 86 Respiratory Rate 16 24 27 H Blood Pressure 117/68 138/82 131/75 Pulse Oximetry 98 98 96 Oxygen Delivery Method Room Air Simple Mask Room Air Oxygen Flow Rate 10 06/17/25 09:03 06/17/25 09:08 Temperature Pulse Rate 85 84 Respiratory Rate 26 H 26 H Blood Pressure 120/70 123/73 Pulse Oximetry 94 94 Oxygen Delivery Method Room Air Room Air Oxygen Flow Rate Oxygen Delivery Method Room Air Oxygen Flow Rate 10 [facility] Medical History (Updated 05/14/25 @ 17:26 by Ken Allen MD) History of colonic polyps Sleep disorder breathing Iron deficiency anemia 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 Pulmonary nodules Sleep apnea (~2019) Anxiety (~2017) Depression, major, recurrent (~2017) Rotator cuff arthropathy of right shoulder Surgical History H/O vasectomy Anesthesia History of arthroscopy of shoulder (~08/06/21) Ruptured hamstring tendon (~04/15/19) Anal fistula (~12/29/11) Family History Father Prostate cancer History of heart disease Hypertension Mother Hypertension Asthma Grandfather Dementia Grandmother Aneurysm Grandfather CVA (cerebral vascular accident) Renal failure Grandmother Alzheimer's disease Social History household members: spouse Smoking Status: Never smoker alcohol intake: current Discharge Plan Discharge orders & Medications Prescriptions: No Action alprazolam [Xanax] 0.5 mg tablet 0.5 mg PO BID PRN (Reason: anxiety) Qty: 15 1RF albuterol sulfate 90 mcg/actuation HFA aerosol inhaler 2 puff inhalation Q6H PRN (Reason: shortness of breath or wheezing) Qty: 8.5 5RF Qvar RediHaler 40 mcg/actuation HFA aerosol breath activated 1 inh inhalation BID Qty: 10.6 5RF finasteride 5 mg tablet 5 mg PO DAILY Qty: 90 3RF fluconazole 100 mg tablet 100 mg PO DAILY 21 Days Qty: 30 1RF fluticasone propionate [Flonase Allergy Relief] 50 mcg/actuation spray,suspension 2 spray intranasal DAILY Rx Instructions: administer into each nostril (DME) Martir Aerosol [place] Enhancer Spacer See Rx Instructions .Route Qty: 1 1RF Rx Instructions: As directed budesonide-formoterol [Symbicort] 80-4.5 mcg/actuation HFA aerosol inhaler 1 inh inhalation ONCE Qty: 10.2 3RF Rx Instructions: With spacer escitalopram oxalate [Lexapro] 10 mg tablet 10 mg PO DAILY Follow up/Referrals: Ken Allen MD [Physician, Pulmonology] - 2 Weeks Kingston Sandoval MD [Primary Care Provider, Internal Medicine] - 2 Weeks Diet/Activity/Treatments Diet: Diet as Tolerated Visit Report/Discharge Packet Instructions: DI for Bronchoscopy, Diagnostic Stand Alone Forms: Surgery Discharge Print Language: Tanzanian Discharge Data Primary Care Provider: Kingston Sandoval V Attending Provider: Ken Allen PROFEE Charge Codes Discharge inpatient/observation: [id number]
== END 2025-06-17 09:58 | disposition home or self-care (01) ==
PROVIDERS: Family Provider Internal Medicine; PCP Internal Medicine; Referring Provider Internal Medicine Critical Care Medicine; Visit Provider Internal Medicine Critical Care Medicine
PROC: 0BJ08ZZ Inspection of Tracheobronchial Tree, Via Natural or Artificial Opening Endoscopic (ICD-10-PCS; CPT 31622; principal; 2025-06-17 07:45)
DX: R05.3 Chronic cough (principal); R91.8 Other nonspecific abnormal finding of lung field
CPT/HCPCS: 31622; 87070; 87102; 87116; 87205; 87206; J1100; J2250; J2405; J2704; J3010; J3490